=== PATIENT | male | born 1950 | race Caucasian/White ===

== ENCOUNTER 2018-02-11 08:36 | Day surgery (SDC) | payer MEDICARE, BC ==
[2018-02-10 11:43] VITALS: BMI 31.6
[2018-02-11 09:52] VITALS: BP 135/76; TEMP 98.3
--- NOTE | 2018-02-11 11:58 | RAD ---
CERVICAL MYELOGRAM: Date: 02/11/18 INDICATION: Spondylosis with myelopathy. Post cervical spine surgery. Myelogram requested prior to CT cervical sp ine. FINDINGS: Spinal canal was puncture at the L2 level under fluoroscopic guidance with 22 gauge spinal needle. Is [id number] was injected under fluoroscopic observation. The patient was placed head-down to allow cont rast to flow into the cervical canal. This was confirmed with fluoroscopy. The patient was then place d back in neutral position and sterile dressing applied. The patient was then transferred to CT in go od condition. See post myelogram CT cervical spine for further characterization. PROCEDURE NOTE: The patient had been premedicated according to standard protocol for possible iodine allergy. Procedure and potential risks were discussed with the patient. The patient was placed prone on the fl oro table and the lower back was prepped and draped. Local anesthesia was administered with lidocain e under fluoroscopic guidance. A 22 gauge spinal needle was used to enter the spinal canal at the L2 level using a paramidline approach from the left. Clear CSF was recovered. 15 mL of Isovue-300M was injected under fluoroscopic observation. Fluoro table was placed head-down and contrast was allowed t o flow into the cervical canal. The patient was then placed back in neutral position. There were no p roblems or complications. POS: [facility]
--- NOTE | 2018-02-11 12:12 | CT ---
POST MYELOGRAM CT SCAN CERVICAL SPINE: Date: 02/11/18 TECHNIQUE: Multiple axial tomograms obtained through cervical spine following a cervical myelogram procedure. INDICATION: Cervical pain and cervical spondylosis. COMPARISON: Post myelogram CT cervical spine dated 11/22/14. FINDINGS: Postoperative changes have occurred since the prior study. Anterior fusion procedure has been perform ed. Anterior plate and screws are now seen transfixing C4, C5, and C6. Interbody implants are present . There is disc narrowing and degenerative change at C3-4 and C6-7. Posterior spondylitic changes are n oted at all levels. At C2-3, mild facet hypertrophy is seen, combined with uncinate hypertrophy mildly encroaches on the left foramina. No significant impingement on the thecal sac centrally. At C3-4, posterior disc bulge and spondylosis flatten the thecal sac and efface the anterior subarach noid space. There is severe left foraminal stenosis due to facet and uncinate hypertrophy and mild ri ght foraminal stenosis at this level. At C4-5, there are postop fusion changes. Posterior spondylitic changes efface the anterior subarachn oid space. Mild right foraminal narrowing due to facet and uncinate hypertrophy. At C5-6, posterior spondylitic changes are prominent, flattening the thecal sac and effacing anterior subarachnoid space. There is moderate bilateral foraminal stenosis due to facet and uncinate hypertr ophy at this level. At C6-7, disc bulge and spondylosis abut the thecal sac; however, the anterior subarachnoid space is preserved. Mild uncinate hypertrophy; however, no significant foraminal encroachment or narrowing. IMPRESSION: Spondylosis at C3-4, C4-5, C5-6, and C6-7 levels as described above. Postoperative changes as noted. POS: [facility]
[2018-02-11] MEDS ORDERED: Iopamidol-M 300 61% 15 ML VIAL ONE (15:11)
== END 2018-02-11 13:05 | disposition home or self-care (01) ==
LOC: RAD 08:36
PROVIDERS: ATTEND Neurological Surgery
PROC: B01B1ZZ Fluoroscopy of Spinal Cord using Low Osmolar Contrast (ICD-10-PCS; principal; 2018-02-11)
DX: M47.12 Other spondylosis with myelopathy, cervical region (principal); I25.10 Atherosclerotic heart disease of native coronary artery without angina pectoris; I10 Essential (primary) hypertension; F41.9 Anxiety disorder, unspecified; H93.19 Tinnitus, unspecified ear; Z79.52 Long term (current) use of systemic steroids; Z79.82 Long term (current) use of aspirin; Z79.899 Other long term (current) drug therapy; Z91.041 Radiographic dye allergy status; Z88.5 Allergy status to narcotic agent; Z91.013 Allergy to seafood; Z98.1 Arthrodesis status; Z96.7 Presence of other bone and tendon implants; Z98.890 Other specified postprocedural states
CPT/HCPCS: 62302; 72126

== ENCOUNTER 2018-04-30 11:00 | Inpatient (IN) | payer MEDICARE, BC ==
[2018-04-30 11:40] VITALS: BMI 33.0
[2018-05-04] MEDS ORDERED: CEFAZOLIN/Water 2 GM/20 ML SYRINGE ONE (08:17)
[2018-05-04] MEDS ORDERED: Fentanyl 100 MCG/2 ML VIAL ONE (09:41)
[2018-05-04] MEDS ORDERED: Midazolam HCl 2 mg/2 ml Vial ONE (09:41)
[2018-05-04] MEDS ORDERED: Sodium Chloride 0.9% 10 ML ONE (09:43)
[2018-05-04] MEDS ORDERED: HYDROmorphone 0.5 MG/0.5 ML SYRINGE ONE ×4 (11:06→11:42)
[2018-05-04] MEDS ORDERED: Promethazine HCl 25 MG/ML VIAL IM PRN ×2 (11:09→11:33)
[2018-05-04] MEDS ORDERED: HYDROmorphone 2 MG/ML VIAL SLOW IVP PRN (11:09)
[2018-05-04] MEDS ORDERED: Ondansetron HCl/PF 4 MG/2 ML Vial IVP PRN ×2 (11:09→11:37)
[2018-05-04] MEDS ORDERED: Promethazine HCl 25 MG/ML VIAL SLOW IVP PRN (11:09)
--- NOTE | 2018-05-04 11:27 | OP ---
DATE OF PROCEDURE: 05/04/2018 SURGEON: Sid Layton M.D. FOUNDRY ENGINEER: Bernardo Regan PROCEDURE: Removal of hardware C4-C6, exploration of spinal fusion C4-C6, anterior cervical discecto my C3-4, interbody arthrodesis, intravertebral biomechanical device, local morselized autograft, neralized bone matrix, anterior titanium instrumentation C3-C4. PROCEDURE IN DETAIL: The patient was brought to the operating room, intubated. He was positioned gonzalez pine with head in modest extension on a gel-filled donut. The previous incision was reopened and dis secting down to the cervical spine we identified the previous plate. The plate was removed without d ifficulty and the previous fusion was explored and seemed to be solid. We next placed distraction ac ross C3-4, debrided anterior osteophytes. We placed distraction across the disk space. The C3-4 dis c was entirely removed and this level decompressed. The bony endplates were decorticated for the pur pose of arthrodesis and appropriately sized intravertebral biomechanical PEEK device was brought into the field, filled with demineralized bone and local morselized autograft, and tapped into place secu rely at C3-4. Next, an anterior plate was brought into the field and secured to C3 and C4 using two 14 mm screws at each level. The wound was then extensively irrigated, immaculate hemostasis was secu red, and the wound was closed in anatomic layers.
[2018-05-04] MEDS ORDERED: Promethazine HCl 12.5 MG SUPP PR PRN (11:33)
[2018-05-04] MEDS ORDERED: diphenhydrAMINE 50 MG/ML VIAL IVP PRN (11:33)
[2018-05-04] MEDS ORDERED: Promethazine 25 MG TAB PO PRN (11:33)
[2018-05-04] MEDS ORDERED: Morphine 4 MG/ML Carpuject SLOW IVP PRN (11:33)
[2018-05-04] MEDS ORDERED: traMADol HCl 50 MG TAB PO PRN ×2 (11:33)
[2018-05-04] MEDS ORDERED: Mag-Al 1200 mg/1200 mg/30 ML UDCUP PO PRN (11:33)
[2018-05-04] MEDS ORDERED: Milk Of Magnesia 30 ML UDCUP PO PRN (11:33)
[2018-05-04] MEDS ORDERED: diphenhydrAMINE 25 MG CAP PO PRN (11:33)
[2018-05-04] MEDS: Sodium Chloride 0.9% 1,000 ML IV SCH (13:09)
[2018-05-04] MEDS ORDERED: Sildenafil Citrate 20 MG TAB PO PRN (13:17)
[2018-05-04] MEDS: HYDROcodone/Acetaminophen 10/325 mg Tablet PO PRN ×3 (14:26→21:13)
[2018-05-04] MEDS ORDERED: Dexamethasone 20 MG/5 ML VIAL ONE (14:59)
[2018-05-04] MEDS ORDERED: PROPOFOL 200 MG/20 ML VIAL ONE (14:59)
[2018-05-04] MEDS ORDERED: Ketorolac Tromethamine 30 MG/ML VIAL ONE (14:59)
[2018-05-04] MEDS ORDERED: Lidocaine 1% PF 5 ML VIAL ONE (14:59)
[2018-05-04] MEDS ORDERED: Ondansetron HCl/PF 4 MG/2 ML Vial ONE (14:59)
[2018-05-04] MEDS: Cyclobenzaprine 10 MG TAB PO PRN (18:01)
[2018-05-04] MEDS: CEFAZOLIN/Water 2 GM/20 ML SYRINGE SLOW IVP SCH (18:02)
--- NOTE | 2018-05-04 19:47 | PDOC.PN ---
- Subjective Encounter Start Date: 05/04/18 Encounter Start Time: 16:00 Patient seen and examined for med mngt. No CP/SOB. Pain controlled. Follows Dr Mathews. - Objective MAR Reviewed: Yes Vital Signs & Weight: Vital Signs (12 hours) Temp Pulse Resp BP Pulse Ox 05/04/18 17:30 88 20 125/81 05/04/18 15:40 97 20 125/76 05/04/18 14:22 89 20 125/76 99 05/04/18 13:30 87 18 120/79 97 05/04/18 12:55 98.4 F 77 18 132/83 97 Weight Weight 250 lb I&O: 05/03/18 05/04/18 05/05/18 06:59 06:59 06:59 Intake Total 800 Output Total 30 Balance 770 EKG Reviewed by me: Yes (SR) Phys Exam - Physical Examination Constitutional: NAD Respiratory: no wheezing, no rhonchi Cardiovascular: RRR, no rub Gastrointestinal: soft, non-tender, positive bowel sounds Musculoskeletal: no edema Neurological: moves all 4 limbs Dx/Plan - Plan DVT proph w/SCDs IMPRESSION: 1. Essential tremors 2. GERD 3. Anxiety 4. Depression 5. DJD PLAN: Cont Inderal Cont Xanax/ Citalopram Cont Protonix Cont to monitor Full code - DPOA - spouse Review of Systems - Review of Systems Respiratory: negative: Cough, Dry, Shortness of Breath, Hemoptysis, SOB with Excertion, Pleuritic Pain, Sputum, Wheezing Cardiovascular: negative: chest pain, palpitations, orthopnea, paroxysmal nocturnal dyspnea, edema, light headedness, other - Medications/Allergies Allergies/Adverse Reactions: Allergies Allergy/AdvReac Type Severity Reaction Status Date / Time Iodine and Iodide Containing Allergy Severe Verified 04/30/18 11:41 Produc shellfish derived Allergy Severe Verified 04/30/18 11:41 codeine AdvReac Nausea Verified 04/30/18 11:41 Medications: Current Medications Hydrocodone Bitart/Acetaminophen ([place] 10/325) 1 tab PO Q4H PRN PRN Reason: PAIN (1-3) Last Admin: 05/04/18 16:07 Dose: 1 tab Hydrocodone Bitart/Acetaminophen ([place] 10/325) 2 tab PO Q4H PRN PRN Reason: PAIN (4-6) Al Hydroxide/Mg Hydroxide (Maalox) 30 ml PO Q4H PRN PRN Reason: Heartburn or Indigestion Alprazolam (Xanax) 0.5 mg PO HS [facility] Cefazolin Sodium (Ancef) 2 gm SLOW IVP Q8H [facility] Last Admin: 05/04/18 18:02 Dose: 2 gm Citalopram Hydrobromide (Celexa) 40 mg PO ASDIR JAMEL Cyclobenzaprine HCl (Flexeril) 10 mg PO DAILYPRN PRN PRN Reason: Muscle Spasm Last Admin: 05/04/18 18:01 Dose: 10 mg Diphenhydramine HCl (Benadryl) 25 mg PO Q6H PRN PRN Reason: Itching Diphenhydramine HCl (Benadryl) 25 mg IVP Q6H PRN PRN Reason: Itching Sodium Chloride (Normal Saline 0.9%) 1,000 mls @ 75 mls/hr IV .[id number] [facility] Last Admin: 05/04/18 13:09 Dose: Not Given Magnesium Hydroxide (Milk Of Magnesium) 30 ml PO Q12H PRN PRN Reason: Constipation Morphine Sulfate (Morphine) 2 mg SLOW IVP Q1H PRN PRN Reason: Moderate Breakthrough Pain Morphine Sulfate (Morphine) 4 mg SLOW IVP Q1H PRN PRN Reason: Severe Breakthrough Pain Ondansetron HCl (Zofran) 4 mg IVP Q8H PRN PRN Reason: Nausea/Vomiting Pantoprazole Sodium (Protonix) 40 mg PO DAILY [facility] Metanx Patient's (Home Medication) 1 each PO QAM [facility] Promethazine HCl (Phenergan) 12.5 mg IM Q4H PRN PRN Reason: Nausea/Vomiting Promethazine HCl (Phenergan) 12.5 mg PO Q4H PRN PRN Reason: Nausea/Vomiting Promethazine HCl (Phenergan Suppository) 12.5 mg [place] Q4H PRN PRN Reason: Nausea/Vomiting Propranolol HCl (Inderal) 20 mg PO QAM [facility] Sodium Chloride (Flush - Normal Saline) 10 ml IVF Q12HR [facility] Sodium Chloride (Flush - Normal Saline) 10 ml IVF PRN PRN PRN Reason: Saline Flush Tizanidine HCl (Zanaflex) 4 mg PO Q6H PRN PRN Reason: MUSCLE SPASM Tramadol HCl (Ultram) 50 mg PO Q6H PRN PRN Reason: PAIN (1-3) Tramadol HCl (Ultram) 100 mg PO Q6H PRN PRN Reason: PAIN (4-6)
[2018-05-04] MEDS ORDERED: ALPRAZolam 0.5 MG TAB PO SCH (21:00)
[2018-05-04] MEDS: tiZANidine HCl 4 MG TAB PO PRN (21:13)
[2018-05-05] MEDS: CEFAZOLIN/Water 2 GM/20 ML SYRINGE SLOW IVP SCH ×2 (01:35→10:23)
[2018-05-05] MEDS: Cyclobenzaprine 10 MG TAB PO PRN (01:35)
[2018-05-05] MEDS: HYDROcodone/Acetaminophen 10/325 mg Tablet PO PRN ×3 (01:35→10:34)
[2018-05-05] MEDS: Sodium Chloride 0.9% 1,000 ML IV SCH (01:40)
[2018-05-05] MEDS: tiZANidine HCl 4 MG TAB PO PRN (06:39)
[2018-05-05 08:13] VITALS: BP 100/66; TEMP 97.2
[2018-05-05] MEDS ORDERED: Propranolol HCl 20 MG TAB PO SCH (09:00)
[2018-05-05] MEDS ORDERED: METANX PO SCH (09:00)
[2018-05-05] MEDS ORDERED: Citalopram 20 MG TAB PO SCH (09:00)
== END 2018-05-05 11:16 | disposition home or self-care (01) | DRG 473 ==
LOC: SURG A 05-04 07:47 → EDSTATUS 05-04 11:00 → SURG A 05-04 12:23
PROVIDERS: ADMIT Neurological Surgery; ATTEND Neurological Surgery
PROC: 0RG10A0 Fusion of Cervical Vertebral Joint with Interbody Fusion Device, Anterior Approach, Anterior Column, Open Approach (ICD-10-PCS; principal; 2018-05-04)
PROC: 0RT30ZZ Resection of Cervical Vertebral Disc, Open Approach (ICD-10-PCS; 2018-05-04)
PROC: 0RP104Z Removal of Internal Fixation Device from Cervical Vertebral Joint, Open Approach (ICD-10-PCS; 2018-05-04)
DX: M47.812 Spondylosis without myelopathy or radiculopathy, cervical region (principal); G25.0 Essential tremor; K21.9 Gastro-esophageal reflux disease without esophagitis; F41.9 Anxiety disorder, unspecified; F32.9 Major depressive disorder, single episode, unspecified; I25.10 Atherosclerotic heart disease of native coronary artery without angina pectoris; I10 Essential (primary) hypertension; Z88.8 Allergy status to other drugs, medicaments and biological substances; Z88.5 Allergy status to narcotic agent; Z91.013 Allergy to seafood; Z79.899 Other long term (current) drug therapy
CPT/HCPCS: 76001; A4216; C1713; C1776; J1100; J1170; J1885; J2001; J2250; J2405; J2550; J2704; J3010; J3490

== ENCOUNTER 2018-04-30 11:06 | Outpatient (CLI) | payer MEDICARE, BC ==
[2018-04-30 12:54] LABS: Mean Corpuscular Hemoglobin 32.8 pg (27.0-31.0); Mean Corpuscular Volume 96.5 fL (78.0-98.0); Platelet Count 235 thou/uL (130-400); RBC Distribution Width 12.5 % (11.5-14.5); Red Blood Cell (RBC) Count 4.27 mill/uL (4.70-6.10)
[2018-04-30 13:11] LABS: Anion Gap 11 mmol/L (10-20); BUN (Urea Nitrogen) 17 mg/dL (8.4-25.7); Calc. Creatinine Clearance 0 mL/min (70-130); Calcium 9.3 mg/dL (7.8-10.44); Carbon Dioxide 25 mmol/L (23-31); Chloride 105 mmol/L (98-107); Estimated GFR-MDRD 65; Glucose 107 mg/dL (80-115); Potassium 4.2 mmol/L (3.5-5.1); Sodium 137 mmol/L (136-145)
--- NOTE | 2018-04-30 16:34 | EKG ---
Test Reason : Blood Pressure : / mmHG Vent. Rate : 067 BPM Atrial Rate : 067 BPM P-R Int : 166 ms QRS Dur : 082 ms QT Int : 392 ms P-R-T Axes : 049 005 024 degrees QTc Int : 414 ms Normal sinus rhythm Normal ECG Confirmed by MAMADOU RANGEL ([id number]) on 04/30/2018 4:33:42 PM Referred By: CAITLIN Confirmed By:MAMADOU RANGEL
== END 2018-04-30 11:07 | disposition home or self-care (01) ==
LOC: LABBT 11:06
PROVIDERS: ATTEND Neurological Surgery
DX: Z01.818 Encounter for other preprocedural examination (principal); M54.12 Radiculopathy, cervical region; M54.16 Radiculopathy, lumbar region
CPT/HCPCS: 80048; 85027; 93005; 93010

== ENCOUNTER 2018-05-19 10:46 | Outpatient (CLI) | payer MEDICARE, BC ==
--- NOTE | 2018-05-19 12:06 | RAD ---
CERVICAL SPINE FOUR VIEWS: Date: 05-19-18 Comparison: 07-18-15 History: Evaluate cervical spine following surgery two weeks ago, neck pain. FINDINGS: Anterolisthesis at C2-3 noted measuring 5 mm, slightly increased when compared to the prior exam. The re is joint space narrowing and posterior osteophyte formation at C2-3 as well. There is anterior dis cectomy and fusion hardware present at C3-4, new. On the prior examination there was anterior discect brad and fusion hardware at C4-5 and C5-6, the screws and plate having been removed since the prior ex am. No significant anterolisthesis or retrolisthesis is seen otherwise. There is normal alignment at the cervicothoracic junction. Open mouth odontoid view demonstrates a normal appearing and C1-2 articulation. There is prominent multilevel degenerative facet and uncal vertebral osteophyte formation throughout the cervical spine, left greater than right, most prominent at C3-4, C4-5, and C5-6. IMPRESSION: Post-operative and degenerative change within the cervical spine as detailed above. POS: [facility]
== END 2018-05-19 10:47 | disposition home or self-care (01) ==
LOC: TBSIIMAG 10:46
PROVIDERS: ATTEND Neurological Surgery
DX: M54.2 Cervicalgia (principal); M47.892 Other spondylosis, cervical region; Z98.1 Arthrodesis status
CPT/HCPCS: 72040

== ENCOUNTER 2018-07-08 15:33 | Outpatient (CLI) | payer MEDICARE ==
--- NOTE | 2018-07-08 16:36 | RAD ---
CERVICAL SPINE SERIES 3 VIEWS: Date: 07/08/18 COMPARISON: 05/19/18. HISTORY: Follow-up surgery. FINDINGS: Patient has undergone anterior cervical fusion and placement of plate and screws at C3-4. Markers of disc implant at this level are within the confines of the disc level. Bony fusion is seen at C4-5 and disc implants at C4-5 and C5-6 levels are stable. IMPRESSION: Stable postop change. POS: [facility]
== END 2018-07-08 15:34 | disposition home or self-care (01) ==
LOC: TBSIIMAG 15:33
PROVIDERS: ATTEND Neurological Surgery
DX: M50.30 Other cervical disc degeneration, unspecified cervical region (principal); Z98.1 Arthrodesis status
CPT/HCPCS: 72040